=== PATIENT | male | born 1965 | race Caucasian/White ===

== ENCOUNTER → 2018-02-08 | Outpatient (CLI) | payer BC | LOC: M SLEEP HO 14:05 | DX: G47.30 Sleep apnea, unspecified (principal); R40.0 Somnolence ==

== ENCOUNTER → 2018-03-17 | Outpatient (CLI) | payer BC | LOC: M SLEEP 20:00 | DX: G47.33 Obstructive sleep apnea (adult) (pediatric) (principal) | CPT/HCPCS: 95811 ==

== ENCOUNTER → 2019-03-05 | Outpatient (CLI) | payer BC ==
--- NOTE | 2019-03-06 03:05 | REP ---
Clinical: Shoulder pain. Technique: Internal rotation, external rotation, and Y view of the left shoulder. Findings: Cortical irregularity and spurring noted at the acromioclavicular joint as well as along the coracoid process. The subacromial space is normal. There is a subtle blunting and sclerosis to the ossified glenoid rim. The humeral head appears intact and normal. Surrounding soft tissues are unremarkable. Impression: Mild/early moderate degenerative changes as described above. Electronically Signed by Solo Kelly MD 03/06/2019 02:57 A
== END ==
LOC: M WUC 16:30
PROVIDERS: ATTEND Physician Assistant
DX: M19.012 Primary osteoarthritis, left shoulder (principal); M25.512 Pain in left shoulder

== ENCOUNTER → 2019-06-21 | Outpatient (CLI) | payer BC ==
--- NOTE | 2019-06-21 17:28 | REP ---
CERVICAL SPINE: Limited AP and lateral views of the cervical spine are performed for posterior lump, marked on the skin by the technologist. At that location there is bulging subcutaneous fat which may correspond to the clinical impression of a palpable lump. However evaluation for underlying soft-tissue mass is limited radiographically. The cervical vertebral bodies are normal in height and are well aligned with normal cervical lordosis. There is no prevertebral soft-tissue swelling. IMPRESSION: Palpable lump may correspond to abundant subcutaneous fatty tissue in the lower cervical region. However radiography is limited to evaluate for soft-tissue masses. Confirmation could be made with MRI if there is a discrete palpable mass. Electronically Signed by Tyler Feliciano MD 06/25/2019 05:43 P
[2019-06-21 20:39] LABS: BLOOD UREA NITROGEN 21 MG/DL (7-18); CALCIUM LEVEL 9.6 MG/DL (8.5-10.1); CARBON DIOXIDE LEVEL 30 MEQ/L (21-32); CHLORIDE LEVEL 106 MEQ/L (98-107); CREATININE FOR GFR 1.04 MG/DL (0.70-1.30); GLOMERULAR FILTRATION RATE > 60.0 (>56); GLUCOSE, FASTING 121 MG/DL (70-100); HEMATOCRIT 41.6 % (42.0-52.0); HEMOGLOBIN 14.1 g/dl (13.5-17.5); MEAN CORPUSCULAR HEMOGLOBIN 29.8 pg (27.0-33.0); MEAN CORPUSCULAR HGB CONC 33.9 g/dl (32.0-36.5); MEAN CORPUSCULAR VOLUME 87.9 fl (80.0-96.0); PLATELET COUNT, AUTOMATED 266 10^3/uL (150-450); POTASSIUM SERUM 4.1 MEQ/L (3.5-5.1); RED BLOOD COUNT 4.73 10^6/uL (4.30-6.10); SODIUM LEVEL 143 MEQ/L (136-145); WHITE BLOOD COUNT 8.8 10^3/uL (4.0-10.0)
== END ==
LOC: M WUC 15:34
PROVIDERS: ATTEND Nurse Practitioner Family
DX: M54.2 Cervicalgia (principal)

== ENCOUNTER → 2023-09-25 | Outpatient (CLI) | payer BC, OTHER | LOC: M WUC 08:26 | PROVIDERS: ATTEND Physician Assistant | DX: M25.541 Pain in joints of right hand (principal) ==